=== PATIENT | male | born 2005 | race Caucasian/White ===

== ENCOUNTER 2024-03-12 15:22 | Emergency (ER) | payer BC, MEDICAID, SELFPAY ==
[2024-03-12 15:24] VITALS: BP 125/85; PULSE 61; RESP 14; TEMP 36.7; O2SAT 97; BMI 24.4
[2024-03-12 16:01] LABS: Basophils % 0.5 %; Eosinophils # 0.1 10^3/uL (0.0-0.8); Hematocrit 44.7 % (37-53); Lymphocytes # 1.8 10^3/uL (1.5-6.5); Lymphocytes % 22.9 %; Mean Corpuscular HGB Conc 33.1 g/dL (30-55); Mean Corpuscular Hemoglobin 28.3 pg (27-33); Mean Corpuscular Volume 85.5 fl (82-101); Mean Platelet Volume 10.9 fL (7.4-10.4); Monocytes # 0.6 10^3/uL (0.2-0.9); Monocytes % 8.2 %; Neutrophils # 5.14 10^3/uL (1.8-8.0); Neutrophils % 67.1 %; Nucleated Red Blood Cells % 0 %; Platelet Count 236 10^3/cmm (157-399); Red Blood Count 5.23 10^6/uL (3.85-5.65); Red Cell Distribution Width 12.7 % (12.1-15.1); White Blood Count 7.67 10^3/uL (4.5-13.0)
--- NOTE | 2024-03-12 16:01 | W.ED.ABDPA2 ---
HPI - Abdominal Pain General: Chief Complaint: Abdominal Pain Stated Complaint: Stomach Pain, fever Time Seen by Provider: 03/12/24 15:48 Source: patient Mode of arrival: ambulatory History of Present Illness: 19 yo male presents to the ER with complaints of abd pain. He states has had this intermittently for several years now. He has been started on omeprazole for it. He has been told that he has a problem with gastric emptying of some form. No hematochezia melena hematemesis or coffee-ground emesis no fever. He states he has been evaluated for his gallbladder past and that was normal. No dysuria urgency or frequency. He has had some intermittent vomiting and loose stools. MD elicited complaint: abdominal pain Onset (ago): day(s) Pain Consistency: intermittent Location: Epigastric Severity: mild Quality: cramping Associated Symptoms: Reports diarrhea, nausea, poor appetite and vomiting; Denies anorexia, belching, bloating, change in bowel habits, change in stool character, chills, coffee ground emesis, constipation, GI cramping, dyspepsia, dysuria, excessive flatus, fever(s), heartburn, hematochezia, hematuria, hematemesis, fecal incontinence, loose stools, melena and syncope Review of Systems Const: Denies: fever(s) or chills Card: Denies: chest pain or syncope Resp: Denies: dyspnea GI: Reports: nausea, vomiting and diarrhea; Denies: abdominal pain, hematemesis, coffee ground emesis, heartburn, constipation, bloating, GI cramping, belching, excessive flatus, fecal incontinence, change in bowel habits, change in stool character, hematochezia or melena : Denies: dysuria, urinary frequency, urinary urgency or hematuria Musc: Denies: neck pain or back pain Skin/Breast: Denies: rash Physical Exam Const: COMMON NORMALS: no acute distress GENERAL APPEARANCE: cooperative and comfortable ORIENTATION/CONSCIOUSNESS: Yes awake, Yes oriented to person, Yes oriented to place and Yes oriented to time HENMT: COMMON NORMALS: normocephalic, atraumatic and hearing grossly normal bilaterally HEAD & SCALP: normocephalic and atraumatic Resp: COMMON NORMALS: normal respiratory effort, No retractions, No use of accessory muscles and clear to auscultation bilaterally AUSCULTATION: clear to auscultation bilaterally Cardio: COMMON NORMALS: regular rate, regular rhythm and No murmurs present (Cardio) RATE: regular rate RHYTHM: regular rhythm GI: COMMON NORMALS: Soft to palpation and No hepatosplenomegaly present AUSCULTATION: Yes normoactive bowel sounds PALPATION: Yes Soft to palpation, No Tenderness to palpation present (GI), No Guarding due to palpation present (GI) and Yes No hepatosplenomegaly present Extremity: COMMON NORMALS: normal to inspection, capillary refill normal, no clubbing, cyanosis or edema, no calf tenderness and no pedal edema Neuro: SENSORIUM/ORIENTATION: Yes oriented to person, Yes oriented to place and Yes oriented to time Skin: COMMON NORMALS: no rashes or lesions noted GENERAL SKIN EXAM: no rashes or lesions noted Course Vital Signs: Vital signs: Vital Signs Temperature 98.0 F 03/12/24 15:24 Pulse Rate 61 03/12/24 15:24 Respiratory Rate 14 03/12/24 15:24 Blood Pressure 125/85 03/12/24 15:24 Pulse Oximetry 97 03/12/24 15:24 Oxygen Delivery Me thod Room Air 03/12/24 15:24 MDM - Abdominal Pain Medical Decision Making Has been a longstanding problem for the patient intermittently he has had severe episodes. He did get relief with a GI cocktail today. Will discharge him home to stop his omeprazole start pantoprazole 40 twice daily for 10 days then daily. Sucralfate as needed patient given instructions on dietary adjustments. He should follow-up with his primary care doctor for further evaluation. CT of the abdomen not done as laboratory tests are unremarkable is been a chronic problem and his abdominal exam at this time did not show any acute abnormalities. Differential Diagnosis Likely abdominal pain Medical Records I reviewed the patient's medical records. Lab Data I reviewed the patient's lab results. 03/12/24 15:52 03/12/24 15:52 Labs/Radiology: Laboratory Results WBC 7.67 10^3/uL (4.5-13.0) 03/12/24 15:52 RBC 5.23 10^6/uL (3.85-5.65) 03/12/24 15:52 Hgb 14.80 g/dL (13.2-15.6) 03/12/24 15:52 Hct 44.7 % (37-53) 03/12/24 15:52 MCV 85.5 fl (82-101) 03/12/24 15:52 MCH 28.3 pg (27-33) 03/12/24 15:52 MCHC 33.1 g/dL (30-55) 03/12/24 15:52 RDW 12.7 % (12.1-15.1) 03/12/24 15:52 Plt Count 236 10^3/cmm (157-399) 03/12/24 15:52 MPV 10.9 fL (7.4-10.4) H 03/12/24 15:52 Neut % (Auto) 67.1 % 03/12/24 15:52 Lymph % (Auto) 22.9 % 03/12/24 15:52 [place] % (Auto) 8.2 % 03/12/24 15:52 Eos % (Auto) 1.0 % 03/12/24 15:52 Baso % (Auto) 0.5 % 03/12/24 15:52 Neut # (Auto) 5.14 10^3/uL (1.8-8.0) 03/12/24 15:52 Lymph # (Auto) 1.8 10^3/uL (1.5-6.5) 03/12/24 15:52 [place] # (Auto) 0.6 10^3/uL (0.2-0.9) 03/12/24 15:52 Eos # (Auto) 0.1 10^3/uL (0.0-0.8) 03/12/24 15:52 Baso # (Auto) 0.0 10^3/uL (0.0-0.1) 03/12/24 15:52 Nucleated RBC % (auto) 0 % 03/12/24 15:52 Nucleated RBCs # 0.0 /100WBC 03/12/24 15:52 Sodium 140 mmol/L (136-145) 03/12/24 15:52 Potassium 4.1 mmol/L (3.5-5.1) 03/12/24 15:52 Chloride 100 mmol/L (98-107) 03/12/24 15:52 Carbon Dioxide 29 mmol/L (22-29) 03/12/24 15:52 Anion Gap 15.1 (5-19) 03/12/24 15:52 BUN 13 mg/dL (6-20) 03/12/24 15:52 Creatinine 0.9 mg/dL (0.7-1.2) 03/12/24 15:52 GFR Calculation 107.6 mL/min (90-130) 03/12/24 15:52 Glucose 99 mg/dL (65-115) 03/12/24 15:52 Calculated Osmolality 290 mOsm/kg (285-295) 03/12/24 15:52 Calcium 9.6 mg/dL (8.5-10.5) 03/12/24 15:52 Total Bilirubin 0.9 mg/dL (0.15-1.2) 03/12/24 15:52 AST 47 U/L (0-40) H 03/12/24 15:52 ALT 25 U/L (0-41) 03/12/24 15:52 Alkaline Phosphatase 70 U/L (40-130) 03/12/24 15:52 C-Reactive Protein 3.0 mg/L (0.0-4.9) 03/12/24 15:52 Total Protein 7.7 g/dL (6.6-8.7) 03/12/24 15:52 Albumin 4.6 g/dL (3.5-5.2) 03/12/24 15:52 Globulin 3.1 g/dL (1.3-4.6) 03/12/24 15:52 Lipase 25 U/L (13-60) 03/12/24 15:52 Urine Color Dark yellow (Yellow) A 03/12/24 16:04 Urine Appearance Clear (CLEAR) 03/12/24 16:04 Urine pH 6 (5-7) 03/12/24 16:04 Ur Specific [place] 1.025 (1.005-1.030) 03/12/24 16:04 Urine Protein Trace (Negative) 03/12/24 16:04 Urine Glucose (UA) Norm (Normal) 03/12/24 16:04 Urine Ketones 1+ (Negative) H 03/12/24 16:04 Urine Blood Neg (Negative) 03/12/24 16:04 Urine Nitrate Negative (Negative) 03/12/24 16:04 Urine Bilirubin 1+ (Negative) H 03/12/24 16:04 Urine Urobilinogen 1 mg/dL (Negative) H 03/12/24 16:04 Ur Leukocyte Esterase Negative (Negative) 03/12/24 16:04 Urine RBC None /hpf (0-2) 03/12/24 16:04 Urine WBC 0-4 /hpf (0-5) H 03/12/24 16:04 Ur Squamous Epith Cells None /hpf (0-5) 03/12/24 16:04 Amorphous Sediment Not Reportable 03/12/24 16:04 Urine Bacteria Trace /hpf (NONE) 03/12/24 16:04 Urine Mucus 2+ /hpf 03/12/24 16:04 No radiology studies performed this visit Discharge Plan Discharge Patient Disposition: Home Clinical Impression: Abdominal pain, Chronic GERD Condition: Stable Prescriptions: New pantoprazole 40 mg tablet,delayed release (DR/EC) 40 mg PO QAM Qty: 40 0RF Rx Instructions: 1 p.o. twice daily x 10 days then 1 p.o. daily Carafate 1 gram tablet 1 g PO Q6H PRN (Reason: Reflux/heartburn) 28 Days Qty: 112 0RF Discharge Orders: Discharge ED (Routine); Ordered 03/12/24 Ordered By: Moiz Tomlinson Discharge Diet: As Directed Discharge Activity: Increase activity as tolerated Patient Instructions: Diet for Stomach Ulcers and Gastritis (ED), GERD (Gastroesophageal Reflux Disease) (ED), Abdominal Pain (ED), Opioid Safety, Pain Management Activity Restrictions/Additional Instructions: Thank you for choosing [facility] for your healthcare needs today. It is very important that you follow up as instructed or that you return to the Emergency Department should you have concerns or if your condition changes or worsens in any way. You were seen today with complaint of abdominal pain. Your laboratory studies and your abdominal exam were benign. Recommend that you stop the omeprazole and start on pantoprazole 1 pill twice a day for 10 days then once daily. You can use the Carafate every 6 hours as needed. Avoid spicy foods tomato-based product type carbonated beverages and citrus fruits. Follow-up with your primary care doctor within the next week to reevaluate Coding Level of Care Code ED Personnel Placement Specialist for Harpal Brito
[2024-03-12 16:18] LABS: Alanine Aminotransferase 25 U/L (0-41); Albumin Level 4.6 g/dL (3.5-5.2); Alkaline Phosphatase 70 U/L (40-130); Anion Gap 15.1 (5-19); Aspartate Amino Transferase 47 U/L (0-40); Blood Urea Nitrogen 13 mg/dL (6-20); Calcium 9.6 mg/dL (8.5-10.5); Carbon Dioxide 29 mmol/L (22-29); Chloride 100 mmol/L (98-107); Creatinine Clr Calc Pharmacy 142.4659; Globulin 3.1 g/dL (1.3-4.6); Glomerular Filtration Rate 107.6 mL/min (90-130); Glucose 99 mg/dL (65-115); Lipase 25 U/L (13-60); Osmolality Calculated 290 mOsm/kg (285-295); Potassium 4.1 mmol/L (3.5-5.1); Sodium 140 mmol/L (136-145); Total Bilirubin 0.9 mg/dL (0.15-1.2); Total Protein 7.7 g/dL (6.6-8.7)
[2024-03-12] MEDS: ondansetron 2 mg/ML SDV 2 mL 4 MG IVP (16:38)
[2024-03-12] MEDS: sodium chloride 0.9% 1,000 ML 999 ML IV (16:38)
[2024-03-12] MEDS: lidocaine 2% viscous 15 ML, aluminum-mag hydrox-simethicon 30 ML, sucralfate oral liq 1 GM PO (16:39)
[2024-03-12 16:53] LABS: Add Urine Microscopic? YES; Bilirubin Urine 1+ (Negative); Blood Urine Neg (Negative); Glucose Urine UA Norm (Normal); Ketones Urine 1+ (Negative); Leukocyte Esterase Urine Negative (Negative); Nitrate Urine Negative (Negative); Protein Urine Trace (Negative); Specific Gravity, Urine 1.025 (1.005-1.030); Urine Appearance Clear (CLEAR); Urine Color Dark Yellow (Yellow); Urobilinogen Urine 1 mg/dL (Negative); pH Urine 6 (5-7)
[2024-03-12 16:54] LABS: Add Urine Culture? No; Bacteria Urine TRACE /hpf; Mucus Urine 2+ /hpf; WBC Urine 0-4 /hpf (0-5)
== END 2024-03-12 18:00 | disposition home or self-care (01) ==
PROVIDERS: Nurse Practitioner Family; Emergency Provider Family Medicine
DX: R10.9 Unspecified abdominal pain (principal); K21.9 Gastro-esophageal reflux disease without esophagitis
CPT/HCPCS: 36415; 80053; 81001; 83690; 85025; 86140; 96361; 96374; 99284; J2405; J7030